=== PATIENT | male | born 1960 | race Caucasian/White ===

== ENCOUNTER 2023-12-01 13:32 | Emergency (ER) | payer SELFPAY ==
[~2023-12-01] VITALS: Ht 167.6 cm; Wt 85.0 kg
[2023-12-01 13:37] VITALS: O2SAT 99
[2023-12-01] MEDS ORDERED: ACETAMINOPHEN 325MG TABLET PO ONE (14:00)
[2023-12-01] MEDS ORDERED: IBUPROFEN 400MG TABLET PO ONE (14:00)
[2023-12-01] MEDS ORDERED: METHOCARBAMOL 500MG TABLET PO ONE (14:00)
[2023-12-01 14:48] VITALS: BP 165/75; PULSE 70; RESP 15
[2023-12-01 14:49] VITALS: TEMP 98.3
[2023-12-01] MEDS ORDERED: LIDO1ADH23 TP (16:07)
[2023-12-01] MEDS ORDERED: TOPUD PO (16:07)
[2023-12-01] MEDS ORDERED: IBUP-2028 MT (16:07)
[2023-12-01] MEDS ORDERED: METH-653 MT (16:07)
== END 2023-12-01 17:50 | disposition home or self-care (01) ==
LOC: ER 13:44
DX: S16.1XXA Strain of muscle, fascia and tendon at neck level, initial encounter (principal); V49.49XA Driver injured in collision with other motor vehicles in traffic accident, initial encounter; Y93.89 Activity, other specified; Y92.89 Other specified places as the place of occurrence of the external cause; Y99.8 Other external cause status
CPT/HCPCS: 72040; 99284